=== PATIENT | male | born 1990 | race African-American/Black ===

== ENCOUNTER 2018-04-22 12:44 | Emergency (ER) | payer OTHER ==
[~2018-04-22] VITALS: Ht 177.8 cm; Wt 89.4 kg
[2018-04-22] MEDS ORDERED: HYDROCODONE-AP1 EAC6 PO (13:49)
== END 2018-04-22 14:30 | disposition home or self-care (01) ==
LOC: ER 12:44
DX: S60.221A Contusion of right hand, initial encounter (principal); X58.XXXA Exposure to other specified factors, initial encounter; Y93.89 Activity, other specified; Y92.89 Other specified places as the place of occurrence of the external cause; Y99.8 Other external cause status

== ENCOUNTER 2018-08-08 13:26 | Emergency (ER) | payer BC ==
[~2018-08-08] VITALS: Ht 167.6 cm; Wt 97.5 kg
[~2018-08-08 13:26] MED LIST: HYDROCODONE-AP1 EAC6 PO
[2018-08-08 15:19] LABS: ABSOLUTE NEUTROPHILS 4.6 thou/uL (1.4-8.2); BASOPHILS 0.7 % (0.0-2.0); EOSINOPHILS 0.4 % (0.0-3.0); HEMATOCRIT 44.1 % (42.0-52.0); LYMPHOCYTES 10.6 % (24.0-44.0); MCH 26.2 pg (26.0-34.0); MONOCYTES 11.5 % (1.0-8.0); PLATELET COUNT 227 thou/uL (150-400); POLYS 76.8 % (36.0-66.0); RBC 5.73 mil/uL (4.50-6.00)
[2018-08-08 15:31] LABS: CALCIUM 9.7 mg/dL (8.5-10.1); CREATININE 1.2 mg/dL (0.7-1.3); POTASSIUM 3.5 mmol/L (3.5-5.1)
[2018-08-08] MEDS ORDERED: VENTOLIN HFA 1818 GM INH (16:48)
[2018-08-08] MEDS ORDERED: IBUPROFEN 600600 M1 PO (16:48)
[2018-08-08] MEDS ORDERED: TESSALON PERLE100 MG PO (16:48)
[2018-08-08 17:24] VITALS: BP 139/83
== END 2018-08-08 17:25 | disposition home or self-care (01) ==
LOC: ER 13:26
PROVIDERS: Nurse Practitioner Family
DX: R06.02 Shortness of breath (principal); R11.2 Nausea with vomiting, unspecified; R05 Cough; R50.9 Fever, unspecified